=== PATIENT | male | born 1950 | race Caucasian/White ===

== ENCOUNTER 2018-05-26 13:53 | Inpatient (IN) | payer MEDICARE, OTHER ==
[~2018-05-26] VITALS: Ht 182.9 cm; Wt 63.5 kg
[2018-05-26] MEDS ORDERED: ARIP5TAB20 (19:47)
[2018-05-26] MEDS ORDERED: FLUO40CA49 (19:47)
[2018-05-26] MEDS ORDERED: GABA-534 (19:48)
[2018-05-26] MEDS ORDERED: BUDE10.2 (19:48)
[2018-05-26] MEDS ORDERED: METH10TA2 (19:48)
[2018-05-26] MEDS ORDERED: UMEC1BLS (19:48)
[2018-05-26] MEDS ORDERED: ARIP30TA11 (19:48)
[2018-05-26 20:07] VITALS: BP 121/75
[2018-05-26] MEDS ORDERED: ENAL1TAB9 PO (20:23)
[2018-05-26] MEDS ORDERED: MAG HYDROX/AL HYDROX/SIMETH 30 ML UDC PO PRN (21:00)
[2018-05-26] MEDS ORDERED: ACETAMINOPHEN 325 MG TABLET PO PRN (21:00)
[2018-05-26] MEDS ORDERED: MAGNESIUM HYDROXIDE 30 ML UDC PO PRN (21:00)
[2018-05-26] MEDS ORDERED: LORAZEPAM 1 MG TABLET PO PRN (21:30)
[2018-05-26] MEDS ORDERED: oxyCODONE HCL SR 10MG TAB.SR.12H PO PRN (22:00)
[2018-05-26 22:21] VITALS: BP 123/75
[2018-05-27] MEDS ORDERED: Z GUARD REMEDY 4 OZ OINT TP PRN (01:30)
[2018-05-27 07:27] LABS: EOSINOPHILS % (AUTO) 0.5 % (0.0-6.0); HEMATOCRIT 42 % (39-51); HEMOGLOBIN 13.8 g/dL (13.5-17.5); LYMPHOCYTES # (AUTO) 1.3 /CMM (0.8-4.8); LYMPHOCYTES % (AUTO) 12.4 % (20.0-44.0); MEAN CORPUSCULAR HEMOGLOBIN 30 PG (26.0-33.0); MEAN CORPUSCULAR HGB CONC 33 g/dl (31.0-36.0); MEAN CORPUSCULAR VOLUME 89 fL (80-96); MONOCYTES # (AUTO) 0.3 /CMM (0.1-1.30); MONOCYTES % (AUTO) 3.4 % (2.0-12.0); NEUTROPHILS # (AUTO) 8.7 /CMM (1.8-8.9); NEUTROPHILS % (AUTO) 83.7 % (43.0-81.0); PLATELET COUNT (AUTO) 265 /CMM (150-450); RDW COEFFICIENT OF VARIATION 14.7 (11.5-15.0); RED BLOOD CELL COUNT(AUTO) 4.69 MIL/uL (4.5-6.0); WHITE BLOOD COUNT (AUTO) 10.4 K/uL (4.3-11.0)
[2018-05-27 07:56] LABS: BILIRUBIN,TOTAL 0.6 mg/dL (0.2-1.0); CALCIUM, SERUM 8.6 mg/dL (8.5-10.1); CREATININE 1.1 mg/dL (0.6-1.3); POTASSIUM 3.8 mmol/L (3.5-5.1); TOTAL PROTEIN, SERUM 6.2 g/dL (6.4-8.2)
[2018-05-27 08:00] VITALS: BP 146/91
[2018-05-27] MEDS ORDERED: METHADONE HCL 10 MG TABLET PO SCH (09:00)
[2018-05-27] MEDS: ENALAPRIL MALEATE (5 MG) 5 MG TABLET PO SCH (09:24)
[2018-05-27] MEDS: FLUTICASONE/VILANTEROL 1 EACH BLST.W.DEV IH SCH (09:25)
[2018-05-27] MEDS: HYDROCHLOROTHIAZIDE 25 MG TABLET PO SCH (09:25)
[2018-05-27] MEDS: Z GUARD REMEDY 4 OZ OINT TP SCH (09:26)
[2018-05-27 16:00] VITALS: BP 100/63
[2018-05-27] MEDS: HYDROCODONE/APAP 5/325MG 1 EACH TABLET PO PRN (16:52)
[2018-05-27 20:05] VITALS: BP 102/67
[2018-05-27] MEDS: MIRTAZAPINE 15 MG TABLET PO SCH (21:26)
[2018-05-28 08:00] VITALS: BP 117/78
[2018-05-28] MEDS: ENALAPRIL MALEATE (5 MG) 5 MG TABLET PO SCH (08:46)
[2018-05-28] MEDS: HYDROCHLOROTHIAZIDE 25 MG TABLET PO SCH (08:46)
[2018-05-28] MEDS: oxyCODONE IR immediate release 5 MG PO PRN ×2 (08:46→17:05)
[2018-05-28] MEDS: FLUTICASONE/VILANTEROL 1 EACH BLST.W.DEV IH SCH (08:47)
[2018-05-28] MEDS: Z GUARD REMEDY 4 OZ OINT TP SCH (08:47)
[2018-05-28 16:00] VITALS: BP 100/70
[2018-05-28 20:00] VITALS: BP 98/66
[2018-05-28 20:16] VITALS: BP 98/66
[2018-05-28] MEDS: MIRTAZAPINE 15 MG TABLET PO SCH (21:17)
[2018-05-29 08:00] VITALS: BP 115/81
[2018-05-29] MEDS: ENALAPRIL MALEATE (5 MG) 5 MG TABLET PO SCH (08:43)
[2018-05-29] MEDS: HYDROCHLOROTHIAZIDE 25 MG TABLET PO SCH (08:43)
[2018-05-29] MEDS: oxyCODONE IR immediate release 5 MG PO PRN ×2 (08:44→16:36)
[2018-05-29] MEDS: FLUTICASONE/VILANTEROL 1 EACH BLST.W.DEV IH SCH (08:45)
[2018-05-29] MEDS: Z GUARD REMEDY 4 OZ OINT TP SCH (08:45)
[2018-05-29 16:00] VITALS: BP 118/87
[2018-05-29 20:00] VITALS: BP 105/69
[2018-05-29] MEDS: risperiDONE 1 MG TABLET PO SCH (20:47)
[2018-05-29] MEDS: MIRTAZAPINE 15 MG TABLET PO SCH (21:01)
[2018-05-29] MEDS: TEMAZEPAM 7.5 MG CAPSULE PO PRN (22:53)
[2018-05-30] MEDS: oxyCODONE IR immediate release 5 MG PO PRN ×3 (05:22→21:17)
[2018-05-30 08:00] VITALS: BP 110/81
[2018-05-30] MEDS: HYDROCHLOROTHIAZIDE 25 MG TABLET PO SCH (09:05)
[2018-05-30] MEDS: ENALAPRIL MALEATE (5 MG) 5 MG TABLET PO SCH (09:05)
[2018-05-30] MEDS: risperiDONE 1 MG TABLET PO SCH ×2 (09:06→16:46)
[2018-05-30] MEDS: Z GUARD REMEDY 4 OZ OINT TP SCH (09:07)
[2018-05-30] MEDS: FLUTICASONE/VILANTEROL 1 EACH BLST.W.DEV IH SCH (09:07)
[2018-05-30] MEDS: HYDROCODONE/APAP 5/325MG 1 EACH TABLET PO PRN (12:00)
[2018-05-30 16:00] VITALS: BP 100/68
[2018-05-30 20:00] VITALS: BP 100/56
[2018-05-30] MEDS: MIRTAZAPINE 15 MG TABLET PO SCH (21:16)
[2018-05-30] MEDS: TEMAZEPAM 7.5 MG CAPSULE PO PRN (22:23)
[2018-05-31] MEDS: oxyCODONE IR immediate release 5 MG PO PRN (05:32)
[2018-05-31 08:00] VITALS: BP 100/71
[2018-05-31] MEDS: risperiDONE 1 MG TABLET PO SCH ×2 (09:43→17:47)
[2018-05-31] MEDS: ENALAPRIL MALEATE (5 MG) 5 MG TABLET PO SCH (09:44)
[2018-05-31] MEDS: HYDROCHLOROTHIAZIDE 25 MG TABLET PO SCH (09:45)
[2018-05-31] MEDS: Z GUARD REMEDY 4 OZ OINT TP SCH (10:21)
[2018-05-31] MEDS: FLUTICASONE/VILANTEROL 1 EACH BLST.W.DEV IH SCH (11:02)
[2018-05-31 16:00] VITALS: BP 90/50
[2018-05-31] MEDS: HYDROCODONE/APAP 5/325MG 1 EACH TABLET PO PRN (17:47)
[2018-05-31 19:58] VITALS: BP 90/59
[2018-05-31 20:00] VITALS: BP 90/59
[2018-05-31] MEDS ORDERED: MIRTAZAPINE 15 MG TABLET PO SCH (22:00)
[2018-06-01 08:00] VITALS: BP 95/71
[2018-06-01] MEDS: risperiDONE 1 MG TABLET PO SCH ×2 (08:46→17:03)
[2018-06-01] MEDS: oxyCODONE IR immediate release 5 MG PO PRN ×2 (08:46→21:20)
[2018-06-01] MEDS: Z GUARD REMEDY 4 OZ OINT TP SCH (09:00)
[2018-06-01] MEDS: ENALAPRIL MALEATE (5 MG) 5 MG TABLET PO SCH (09:00)
[2018-06-01] MEDS: HYDROCHLOROTHIAZIDE 25 MG TABLET PO SCH (09:00)
[2018-06-01] MEDS: FLUTICASONE/VILANTEROL 1 EACH BLST.W.DEV IH SCH (09:12)
[2018-06-01 16:00] VITALS: BP 113/74
[2018-06-01] MEDS: HYDROCODONE/APAP 5/325MG 1 EACH TABLET PO PRN (17:02)
[2018-06-01 20:57] VITALS: BP 90/51
[2018-06-01] MEDS: MIRTAZAPINE 15 MG TABLET PO SCH (21:20)
[2018-06-01] MEDS: TEMAZEPAM 7.5 MG CAPSULE PO PRN (22:23)
[2018-06-02] MEDS: oxyCODONE IR immediate release 5 MG PO PRN (03:49)
[2018-06-02 08:00] VITALS: BP 100/59
[2018-06-02] MEDS: HYDROCODONE/APAP 5/325MG 1 EACH TABLET PO PRN ×2 (08:46→16:46)
[2018-06-02] MEDS: risperiDONE 1 MG TABLET PO SCH ×2 (08:47→16:44)
[2018-06-02] MEDS: HYDROCHLOROTHIAZIDE 25 MG TABLET PO SCH (08:47)
[2018-06-02] MEDS: FLUTICASONE/VILANTEROL 1 EACH BLST.W.DEV IH SCH (08:48)
[2018-06-02] MEDS: ENALAPRIL MALEATE (5 MG) 5 MG TABLET PO SCH (08:48)
[2018-06-02] MEDS: Z GUARD REMEDY 4 OZ OINT TP SCH (08:49)
[2018-06-02 16:00] VITALS: BP 105/64
[2018-06-02 20:16] VITALS: BP 102/61
[2018-06-02 20:18] VITALS: BP 102/61
[2018-06-02 21:00] VITALS: BP 100/66
[2018-06-02] MEDS: MIRTAZAPINE 15 MG TABLET PO SCH (22:29)
[2018-06-03] MEDS: oxyCODONE IR immediate release 5 MG PO PRN ×2 (00:25→09:05)
[2018-06-03 08:00] VITALS: BP 109/68
[2018-06-03] MEDS ORDERED: SERTRALINE HCL 50 MG TABLET PO SCH (09:00)
[2018-06-03] MEDS: HYDROCHLOROTHIAZIDE 25 MG TABLET PO SCH (09:00)
[2018-06-03] MEDS: ENALAPRIL MALEATE (5 MG) 5 MG TABLET PO SCH (09:00)
[2018-06-03] MEDS ORDERED: ENSURE ENLIVE CHOC 237 ML CAN PO SCH (09:00)
[2018-06-03 09:42] VITALS: BP 102/53
[2018-06-03] MEDS: risperiDONE 1 MG TABLET PO SCH (10:02)
[2018-06-03] MEDS: FLUTICASONE/VILANTEROL 1 EACH BLST.W.DEV IH SCH (10:03)
[2018-06-03] MEDS: Z GUARD REMEDY 4 OZ OINT TP SCH (10:05)
== END 2018-06-03 16:30 | DRG 885 ==
LOC: GPS 18:21 → GPSOV 06-02 20:36
PROVIDERS: ADMIT Psychiatry & Neurology Psychiatry; ATTEND Family Medicine
DX: F33.3 Major depressive disorder, recurrent, severe with psychotic symptoms (principal); E44.1 Mild protein-calorie malnutrition; Z68.1 Body mass index [BMI] 19.9 or less, adult; G89.4 Chronic pain syndrome; J44.9 Chronic obstructive pulmonary disease, unspecified; F17.210 Nicotine dependence, cigarettes, uncomplicated; Z96.642 Presence of left artificial hip joint; E88.09 Other disorders of plasma-protein metabolism, not elsewhere classified; F29 Unspecified psychosis not due to a substance or known physiological condition; Z71.6 Tobacco abuse counseling; Z98.890 Other specified postprocedural states
CPT/HCPCS: 36415; 80053-TC; 80061-TC; 82962-TC; 85025-TC; 87081-TC; 97116-TC; 97530-TC; Z7610

== ENCOUNTER 2018-07-17 14:01 | Inpatient (IN) | payer MEDICARE, OTHER ==
[~2018-07-17] VITALS: Ht 188 cm; Wt 64.4 kg
[~2018-07-17 14:01] MED LIST: ARIP30TA11; ARIP5TAB20; BUDE10.2; ENAL1TAB9 PO; FLUO40CA49 PO; GABA-534 PO; METH10TA2; UMEC1BLS
[2018-07-17] MEDS ORDERED: UMEC1BLS IH (14:29)
[2018-07-17] MEDS ORDERED: ALBU18HF2 IH (14:29)
[2018-07-17] MEDS ORDERED: TEMA7.5C12 PO (14:29)
[2018-07-17] MEDS ORDERED: MAGNESIUM HYDROXIDE 30 ML UDC PO PRN (14:30)
[2018-07-17] MEDS ORDERED: MAG HYDROX/AL HYDROX/SIMETH 30 ML UDC PO PRN (14:30)
[2018-07-17] MEDS ORDERED: LORAZEPAM 0.5 MG TABLET PO PRN (14:30)
--- NOTE | 2018-07-17 14:30 | NUR ---
GPS/RN RECEIVED PT DIRECT ADMIT ON 515 FOR DTS NO ACUTE DISTRESS NOTED, VSS, AMBULATORY WITH WALKER, BELONGINGS CHECKED FOR CONTRABAND, PICTURES TAKEN AND PLACED IN THE CHART, ADVISEMENT COMPLETED.PT APPEARED DEPRESSED. NO SI OR HI VERBALIZED ON ADMISSION. ADMITTING ORDERS RECEIVED AND CARRIED OUT. MRSA SWAB COLLECTED.
[2018-07-17 14:36] VITALS: BP 119/72
--- NOTE | 2018-07-17 15:46 | NUR ---
GPS/RN JOI RUSSELL PATTERN RULER MADE AWARE OF ADMISSION.
[2018-07-17 16:00] VITALS: BP 119/72
[2018-07-17] MEDS ORDERED: ALBUTEROL FS 2.5 MG/3 ML VIAL.NEB NEB PRN (16:00)
[2018-07-17] MEDS: ANORO ELLIPTA INH SCH (17:00)
[2018-07-17] MEDS: GABAPENTIN 300 MG CAPSULE PO SCH (17:42)
[2018-07-17 20:00] VITALS: BP 106/57
[2018-07-17] MEDS: MIRTAZAPINE 15 MG TABLET PO SCH (21:20)
[2018-07-17 23:00] VITALS: BP 120/69
[2018-07-18 06:52] LABS: BILIRUBIN,TOTAL 0.5 mg/dL (0.2-1.0); CREATININE 1.2 mg/dL (0.6-1.3); POTASSIUM 3.9 mmol/L (3.5-5.1); TOTAL PROTEIN, SERUM 6.4 g/dL (6.4-8.2)
[2018-07-18 08:00] VITALS: BP 105/70
[2018-07-18] MEDS: HYDROCHLOROTHIAZIDE 25 MG TABLET PO SCH (09:00)
[2018-07-18] MEDS: ENALAPRIL MALEATE (5 MG) 5 MG TABLET PO SCH (09:00)
[2018-07-18] MEDS: GABAPENTIN 300 MG CAPSULE PO SCH ×3 (09:16→16:34)
[2018-07-18] MEDS: SERTRALINE HCL 50 MG TABLET PO SCH (09:16)
[2018-07-18] MEDS: risperiDONE 1 MG TABLET PO SCH ×2 (09:16→16:35)
[2018-07-18] MEDS: ANORO ELLIPTA INH SCH ×2 (09:23→16:35)
[2018-07-18 16:00] VITALS: BP 100/69
--- NOTE | 2018-07-18 17:21 | NUR ---
GPS/RN-NOTES DNP DREW AWARE OF PATIENT BUN OF 22. WILL ENCOURAGE PATIENT TO INCREASE FLUID INTAKE.
[2018-07-18 20:00] VITALS: BP 100/65
[2018-07-18] MEDS: MIRTAZAPINE 15 MG TABLET PO SCH (21:19)
[2018-07-19 08:44] VITALS: BP 100/78
[2018-07-19] MEDS: ANORO ELLIPTA INH SCH ×2 (08:54→16:57)
[2018-07-19] MEDS: GABAPENTIN 300 MG CAPSULE PO SCH ×3 (08:54→17:17)
[2018-07-19] MEDS: risperiDONE 1 MG TABLET PO SCH ×2 (08:54→16:56)
[2018-07-19] MEDS: HYDROCHLOROTHIAZIDE 25 MG TABLET PO SCH (08:56)
[2018-07-19] MEDS: ENALAPRIL MALEATE (5 MG) 5 MG TABLET PO SCH (08:57)
[2018-07-19] MEDS: SERTRALINE HCL 50 MG TABLET PO SCH (08:57)
[2018-07-19 16:00] VITALS: BP 108/59
[2018-07-19 20:00] VITALS: BP 104/56
[2018-07-19] MEDS: MIRTAZAPINE 15 MG TABLET PO SCH (21:01)
[2018-07-20 07:21] LABS: BASOPHILS % (AUTO) 0.3 % (0.0-2.0); EOSINOPHILS % (AUTO) 1.7 % (0.0-6.0); HEMATOCRIT 40 % (39-51); HEMOGLOBIN 13.2 g/dL (13.5-17.5); LYMPHOCYTES # (AUTO) 1.8 /CMM (0.8-4.8); LYMPHOCYTES % (AUTO) 25.5 % (20.0-44.0); MEAN CORPUSCULAR HGB CONC 33 g/dl (31.0-36.0); MEAN CORPUSCULAR VOLUME 91 fL (80-96); MONOCYTES # (AUTO) 0.4 /CMM (0.1-1.30); MONOCYTES % (AUTO) 5.4 % (2.0-12.0); NEUTROPHILS # (AUTO) 4.7 /CMM (1.8-8.9); NEUTROPHILS % (AUTO) 67.1 % (43.0-81.0); PLATELET COUNT (AUTO) 181 /CMM (150-450); RDW COEFFICIENT OF VARIATION 16.1 (11.5-15.0); RED BLOOD CELL COUNT(AUTO) 4.33 MIL/uL (4.5-6.0); WHITE BLOOD COUNT (AUTO) 6.9 K/uL (4.3-11.0)
[2018-07-20 07:36] LABS: CALCIUM, SERUM 8.7 mg/dL (8.5-10.1); CREATININE 1.2 mg/dL (0.6-1.3); MAGNESIUM 1.9 mg/dL (1.8-2.4); PHOSPHORUS 2.9 mg/dL (2.5-4.9); POTASSIUM 4.1 mmol/L (3.5-5.1)
[2018-07-20 08:00] VITALS: BP 103/58
[2018-07-20] MEDS: GABAPENTIN 300 MG CAPSULE PO SCH ×3 (08:21→17:00)
[2018-07-20] MEDS: risperiDONE 1 MG TABLET PO SCH ×2 (08:23→17:00)
[2018-07-20] MEDS: SERTRALINE HCL 50 MG TABLET PO SCH (08:23)
[2018-07-20] MEDS: HYDROCHLOROTHIAZIDE 25 MG TABLET PO SCH (08:26)
[2018-07-20] MEDS: ENALAPRIL MALEATE (5 MG) 5 MG TABLET PO SCH (08:27)
[2018-07-20] MEDS: ANORO ELLIPTA INH SCH ×2 (08:31→17:00)
--- NOTE | 2018-07-20 15:42 | NUR ---
Initial Discharge Note: Pt is currently homeless with his , Fabiana Alonso ([phone]). Pt stated that he wants to return to the residential facility that he was discharged to during his previous admission which was called [facility]. SW will work with the pt and the psychiatrist regarding discharge planning. SW will form a safe and proper discharge.
[2018-07-20 16:00] VITALS: BP 93/60
[2018-07-20 20:32] VITALS: BP 86/57
[2018-07-20] MEDS: MIRTAZAPINE 15 MG TABLET PO SCH (21:27)
[2018-07-20 23:00] VITALS: BP 117/66
[2018-07-21 08:45] VITALS: BP 104/71
[2018-07-21] MEDS: risperiDONE 1 MG TABLET PO SCH ×2 (08:59→16:30)
[2018-07-21] MEDS: SERTRALINE HCL 50 MG TABLET PO SCH (08:59)
[2018-07-21] MEDS: HYDROCHLOROTHIAZIDE 25 MG TABLET PO SCH (08:59)
[2018-07-21] MEDS: ENALAPRIL MALEATE (5 MG) 5 MG TABLET PO SCH (09:00)
[2018-07-21] MEDS: GABAPENTIN 300 MG CAPSULE PO SCH ×3 (09:00→16:29)
[2018-07-21] MEDS: ANORO ELLIPTA INH SCH ×2 (09:03→16:31)
[2018-07-21 16:00] VITALS: BP 100/63
[2018-07-21 21:08] VITALS: BP 96/62
[2018-07-21] MEDS: MIRTAZAPINE 15 MG TABLET PO SCH (21:23)
[2018-07-21 23:00] VITALS: BP 107/63
[2018-07-22 08:00] VITALS: BP 107/69
[2018-07-22] MEDS: HYDROCHLOROTHIAZIDE 25 MG TABLET PO SCH (09:00)
[2018-07-22] MEDS: ENALAPRIL MALEATE (5 MG) 5 MG TABLET PO SCH (09:00)
[2018-07-22] MEDS: SERTRALINE HCL 50 MG TABLET PO SCH (09:24)
[2018-07-22] MEDS: GABAPENTIN 300 MG CAPSULE PO SCH ×3 (09:24→16:31)
[2018-07-22] MEDS: risperiDONE 1 MG TABLET PO SCH ×3 (09:26→21:39)
[2018-07-22] MEDS: ANORO ELLIPTA INH SCH ×2 (09:27→16:32)
--- NOTE | 2018-07-22 15:07 | NUR ---
ANA spoke to Chichi ([phone]), from [facility], and discussed the pt returning to the facility.
--- NOTE | 2018-07-22 15:08 | NUR ---
ANA faxed a referral to [facility] to the fax number: [phone].
[2018-07-22 16:16] VITALS: BP 104/68
[2018-07-22 20:38] VITALS: BP 89/54
[2018-07-22] MEDS: MIRTAZAPINE 15 MG TABLET PO SCH (21:39)
[2018-07-23 06:35] LABS: BASOPHILS % (AUTO) 0.4 % (0.0-2.0); HEMATOCRIT 39 % (39-51); LYMPHOCYTES # (AUTO) 1.6 /CMM (0.8-4.8); LYMPHOCYTES % (AUTO) 24.6 % (20.0-44.0); MEAN CORPUSCULAR HGB CONC 33 g/dl (31.0-36.0); MEAN CORPUSCULAR VOLUME 92 fL (80-96); MONOCYTES # (AUTO) 0.5 /CMM (0.1-1.30); MONOCYTES % (AUTO) 7.3 % (2.0-12.0); NEUTROPHILS # (AUTO) 4.4 /CMM (1.8-8.9); NEUTROPHILS % (AUTO) 65.7 % (43.0-81.0); PLATELET COUNT (AUTO) 164 /CMM (150-450); RDW COEFFICIENT OF VARIATION 16.2 (11.5-15.0); RED BLOOD CELL COUNT(AUTO) 4.27 MIL/uL (4.5-6.0); WHITE BLOOD COUNT (AUTO) 6.7 K/uL (4.3-11.0)
[2018-07-23 06:47] LABS: CALCIUM, SERUM 8.4 mg/dL (8.5-10.1); CREATININE 1.2 mg/dL (0.6-1.3); POTASSIUM 4.1 mmol/L (3.5-5.1)
[2018-07-23 08:38] VITALS: BP 113/71
[2018-07-23] MEDS: SERTRALINE HCL 50 MG TABLET PO SCH (09:25)
[2018-07-23] MEDS: risperiDONE 1 MG TABLET PO SCH ×2 (09:25→21:45)
[2018-07-23] MEDS: HYDROCHLOROTHIAZIDE 25 MG TABLET PO SCH (09:25)
[2018-07-23] MEDS: GABAPENTIN 300 MG CAPSULE PO SCH ×3 (09:25→17:01)
[2018-07-23] MEDS: ACETAMINOPHEN 325 MG TABLET PO PRN ×2 (09:26→21:44)
[2018-07-23] MEDS: ANORO ELLIPTA INH SCH ×3 (09:30→17:02)
[2018-07-23] MEDS: ENALAPRIL MALEATE (5 MG) 5 MG TABLET PO SCH (09:30)
--- NOTE | 2018-07-23 12:21 | NUR ---
ANA spoke to the pt and informed him that [facility] accepted him and that he will be discharging there when the psychiatrist, Dr. Sampson, decides that he is ready.
[2018-07-23 16:53] VITALS: BP 99/61
--- NOTE | 2018-07-23 18:24 | NUR ---
PT ATE 100%DINNER IN BED.WITH NO SI/HI EPISODE,PLEASANT AND IS IN A GOOD MOOD.TOOK ALL HIS MEDS WITHOUT DIFFICULTY.WILL CONTINUE TO MONITOR.
[2018-07-23 20:00] VITALS: BP 100/67
[2018-07-23] MEDS: MIRTAZAPINE 15 MG TABLET PO SCH (21:44)
[2018-07-23] MEDS: TEMAZEPAM 7.5 MG CAPSULE PO PRN (21:45)
[2018-07-24 08:00] VITALS: BP 120/74
[2018-07-24] MEDS: GABAPENTIN 300 MG CAPSULE PO SCH ×3 (08:44→16:38)
[2018-07-24] MEDS: HYDROCHLOROTHIAZIDE 25 MG TABLET PO SCH (08:45)
[2018-07-24] MEDS: risperiDONE 1 MG TABLET PO SCH ×2 (08:45→22:07)
[2018-07-24] MEDS: SERTRALINE HCL 50 MG TABLET PO SCH (08:45)
[2018-07-24] MEDS: ANORO ELLIPTA INH SCH ×2 (08:46→16:38)
[2018-07-24] MEDS: ENALAPRIL MALEATE (5 MG) 5 MG TABLET PO SCH (08:46)
[2018-07-24] MEDS: CYCLOBENZAPRINE 10 MG TABLET PO SCH ×3 (08:55→16:38)
[2018-07-24 16:00] VITALS: BP 117/69
[2018-07-24 20:00] VITALS: BP 100/63
[2018-07-24] MEDS: MIRTAZAPINE 15 MG TABLET PO SCH (22:08)
[2018-07-25] MEDS: TEMAZEPAM 7.5 MG CAPSULE PO PRN ×2 (01:31→22:21)
[2018-07-25 08:00] VITALS: BP 100/62
[2018-07-25] MEDS: CYCLOBENZAPRINE 10 MG TABLET PO SCH ×3 (08:35→16:40)
[2018-07-25] MEDS: risperiDONE 1 MG TABLET PO SCH ×2 (08:36→21:11)
[2018-07-25] MEDS: HYDROCHLOROTHIAZIDE 25 MG TABLET PO SCH (08:36)
[2018-07-25] MEDS: GABAPENTIN 300 MG CAPSULE PO SCH ×3 (08:36→16:40)
[2018-07-25] MEDS: ENALAPRIL MALEATE (5 MG) 5 MG TABLET PO SCH (08:38)
[2018-07-25] MEDS: ANORO ELLIPTA INH SCH ×3 (08:38→16:43)
[2018-07-25] MEDS: SERTRALINE HCL 50 MG TABLET PO SCH (08:40)
[2018-07-25 16:00] VITALS: BP 100/63
[2018-07-25 20:17] VITALS: BP 100/68
[2018-07-25] MEDS: MIRTAZAPINE 15 MG TABLET PO SCH (21:11)
[2018-07-26 08:00] VITALS: BP 97/59
[2018-07-26] MEDS: HYDROCHLOROTHIAZIDE 25 MG TABLET PO SCH (09:00)
[2018-07-26] MEDS: ENALAPRIL MALEATE (5 MG) 5 MG TABLET PO SCH (09:00)
[2018-07-26] MEDS: SERTRALINE HCL 50 MG TABLET PO SCH (09:45)
[2018-07-26] MEDS: CYCLOBENZAPRINE 10 MG TABLET PO SCH ×3 (09:45→16:37)
[2018-07-26] MEDS: GABAPENTIN 300 MG CAPSULE PO SCH ×3 (09:45→16:37)
[2018-07-26] MEDS: risperiDONE 1 MG TABLET PO SCH ×2 (09:46→21:29)
[2018-07-26] MEDS: ANORO ELLIPTA INH SCH ×2 (12:36→16:39)
[2018-07-26 16:00] VITALS: BP 98/66
--- NOTE | 2018-07-26 19:30 | NUR ---
GPS RN NOTE, RECEIVED PATIENT AWAKE AND IN BED, NO S/S OR COMPLAINTS OF PAIN AT THIS TIME. PATIENT IS DISPLAYING NO S/S OF APPARENT DISTRESS AT THIS TIME. PATIENT BREATHING IS UNLABORED WITH EQUAL RISE AND FALL OF THE CHEST. PATIENT IS ALERT AND ORIENTED X 2 ON ROOM AIR WITH A SPO2 OF 95%. PATIENT IS MED COMPLIANT, CALM, COOPERATIVE, DISORGANIZED, CONFUSED AT TIMES, AND NEEDS REDIRECTION. PATIENT DENIES SUICIDE IDEATIONS AND HOMICIDAL IDEATIONS AT THIS TIME. PATIENT ASSISTED WITH TURNING AND REPOSITIONING Q 2HRS AND PRN FOR COMFORT AND CIRCULATION. PATIENT HAS NO NEEDS AT THIS TIME. PATIENT EDUCATED ON THE USE OF THE CALL HEAD. PATIENT BED SIDE RAILS UP X 2 FOR SAFETY, BED IS LOCKED, LOW, AND I WILL CONTINUE TO MONITOR AND MAINTAIN SAFETY Q15 MIN WITH THE HELP OF STAFF.
[2018-07-26] MEDS: MIRTAZAPINE 15 MG TABLET PO SCH (21:29)
[2018-07-26] MEDS: TEMAZEPAM 7.5 MG CAPSULE PO PRN (23:27)
--- NOTE | 2018-07-26 23:27 | NUR ---
GPS RN NOTE, PATIENT HAS A COMPLAINT OF NOT BEING ABLE TO SLEEP AND IS REQUESTING RESTORIL AT THIS TIME. PATIENT VITAL SIGNS ARE STABLE. GAVE RESTORIL 15 MG PO HS ORDERED. WILL REASSESS FOR INSOMNIA AND I WILL CONTINUE TO MONITOR THIS PATIENT.
[2018-07-27 08:00] VITALS: BP 104/57
[2018-07-27] MEDS: ENALAPRIL MALEATE (5 MG) 5 MG TABLET PO SCH (09:00)
[2018-07-27] MEDS: risperiDONE 1 MG TABLET PO SCH ×2 (09:25→21:33)
[2018-07-27] MEDS: SERTRALINE HCL 50 MG TABLET PO SCH (09:25)
[2018-07-27] MEDS: CYCLOBENZAPRINE 10 MG TABLET PO SCH ×3 (09:25→17:25)
[2018-07-27] MEDS: ANORO ELLIPTA INH SCH ×2 (09:34→17:26)
[2018-07-27] MEDS: GABAPENTIN 300 MG CAPSULE PO SCH ×3 (09:39→17:25)
--- NOTE | 2018-07-27 09:39 | NUR ---
[id number]: GAVE MILK OF MAGNESIA 30 ML PO DUE TO CONSTIPATION UPON PT REQUEST AND WILL CONTINUE TO MONITOR FOR EFFECTIVENESS OF MEDICATION
[2018-07-27 16:00] VITALS: BP 100/59
--- NOTE | 2018-07-27 20:06 | NUR ---
GPS RN NOTE PT NOTED WITH NO BM TODAY. PAGED PHYSICS PROFESSOR AND RECEIVED NEW ORDER FROM DEANNE AYERS NP FOR DULCOLAX SUPP X 1 NOW AND TO START PATIENT ON COLACE 100 MG PO BID IN THE MORNING. ALL ORDERS NOTED AND CARRIED OUT.
[2018-07-27] MEDS ORDERED: BISACODYL SUPP (10 MG) 10 MG/SUPP.RECT SUPP.RECT RC ONE (20:30)
[2018-07-27 21:15] VITALS: BP 100/59
[2018-07-27] MEDS: MIRTAZAPINE 15 MG TABLET PO SCH (21:32)
[2018-07-27] MEDS: TEMAZEPAM 7.5 MG CAPSULE PO PRN (22:20)
--- NOTE | 2018-07-27 22:20 | NUR ---
RESTORIL 15 MG PO GIVEN TO PT PER PT 'S REQUEST FOR SLEEP.
[2018-07-28 08:00] VITALS: BP 96/71
[2018-07-28] MEDS: CYCLOBENZAPRINE 10 MG TABLET PO SCH ×2 (08:50→13:25)
[2018-07-28] MEDS: GABAPENTIN 300 MG CAPSULE PO SCH ×2 (08:50→13:25)
[2018-07-28] MEDS: risperiDONE 1 MG TABLET PO SCH (08:50)
[2018-07-28] MEDS: ENALAPRIL MALEATE (5 MG) 5 MG TABLET PO SCH (08:51)
[2018-07-28] MEDS: SERTRALINE HCL 50 MG TABLET PO SCH (08:51)
[2018-07-28] MEDS: ANORO ELLIPTA INH SCH (08:56)
[2018-07-28] MEDS ORDERED: DOCUSATE SODIUM 100 MG CAPSULE PO SCH (09:00)
--- NOTE | 2018-07-28 12:57 | NUR ---
SW spoke to the pt and informed him that he is going to be discharged today to [facility] ([facility]).
[2018-07-28 16:00] VITALS: BP 101/64
--- NOTE | 2018-07-28 16:09 | NUR ---
Discharge Note: Pt will be discharged to [facility] ([facility]) located at [address] [place] [address]; ([phone]). Pt was transported via [facility] (Trip #[id number]) at 4:30pm. Pt did not want his , Fabiana ([phone]), to be aware of this placement. Upon discharge, the pt was in a euthymic mood and appeared to be calm but also anxious about his next placement. The pt denied both suicidal and homicidal ideation as well as visual and auditory hallucinations. Pt will be under the care of psychiatrist, Dr. Sampson, located at [address] [place] [address]; ([phone]) and incinerator plant laborer, Dr. Hudson, located at [address], [place] [address]; ([phone]).
--- NOTE | 2018-07-28 16:09 | NUR ---
ANA spoke to Chichi ([phone]), from [facility], and confirmed the pt returning to the facility today.
--- NOTE | 2018-07-28 17:00 | NUR ---
[id number]: PT IS 67 YEARS OLD MALE DISCHARGE TO [facility] LOCATED AT [address] [place]. [address]; ([phone]) IN STABLE CONDITION. COMPLAINT WITH MEDICATIONS, COOPERATIVE WITH TREATMENT PLANS. PT DENIES SI/HI/AVH. BEHAVIOR IMPROVED, PSYCHIATRIC TX PLANS MET, MEDICAL TX PLANS DEFERRED FOR CONTINUAL MONITORING EDUCATED PT ABOUT AFTER CARE PLAN AND COPY PROVIDED. RETURN PERSONAL BELONGINGS TO PT. MEDICATIONS RECONCILED WITH JAJA YEE AND DR. MURDOCK. REPORT GIVEN TO AT [facility] FOR CONTINUITY OF CARE. PT REFUSED SKIN ASSESSMENT. PT LEFT THE UNIT VIA AMBULANCE.
== END 2018-07-28 17:00 | DRG 885 ==
LOC: GPS 14:01
PROVIDERS: ADMIT Psychiatry & Neurology Psychiatry; ATTEND Hospitalist
DX: F33.3 Major depressive disorder, recurrent, severe with psychotic symptoms (principal); R45.851 Suicidal ideations; Z68.1 Body mass index [BMI] 19.9 or less, adult; E44.0 Moderate protein-calorie malnutrition; E78.5 Hyperlipidemia, unspecified; F17.210 Nicotine dependence, cigarettes, uncomplicated; J44.9 Chronic obstructive pulmonary disease, unspecified; I10 Essential (primary) hypertension; Z59.0 Homelessness; F41.9 Anxiety disorder, unspecified; M54.5 Low back pain; E88.09 Other disorders of plasma-protein metabolism, not elsewhere classified; R91.8 Other nonspecific abnormal finding of lung field
CPT/HCPCS: 36415; 80048-TC; 80053-TC; 80061-TC; 83735-TC; 84100-TC; 85025-TC; A6402